=== PATIENT | female | born 1980 | race Caucasian/White ===

== ENCOUNTER 2019-11-08 13:25 | Emergency (ER) | payer OTHER ==
[~2019-11-08] VITALS: Ht 152.4 cm; Wt 56.7 kg
--- NOTE | 2019-11-08 13:40 | NUR ---
[id number] FRM HOME, SOB, SINCE 299. SYMPTOM STARTED YESTERDAY. CHOKING SENSATION S/P EATING FISH YHESTERDAY. PATIENT A/OX4, BREATHING EVEN AND UNLABORED, ON SPO2 100% ON ROOM AIR, PATIETN C/O MIDSTERNAL CHEST PAIN S/O SWALLOWING A FISH BONE. KEPT COMFORTABLE, ATTACHED TO THE RESEARCH EDITOR
[2019-11-08] MEDS ORDERED: ONDANSETRON HCL/PF 4 MG/2 ML VIAL ONE (13:52)
[2019-11-08] MEDS ORDERED: MORPHINE SULFATE INJ 4 MG/ML DISP.SYRIN ONE (13:53)
[2019-11-08] MEDS ORDERED: ONDANSETRON HCL/PF 4 MG/2 ML VIAL IVP ONE (14:00)
[2019-11-08] MEDS ORDERED: MORPHINE SULFATE INJ 2 MG/ML DISP.SYRIN IV ONE (14:00)
[2019-11-08] MEDS ORDERED: IV NS 0.9% 1,000 ML BAG IV ONE (14:00)
[2019-11-08 14:15] LABS: BASOPHILS # (AUTO) 0.2 /CMM (0.0-0.2); BASOPHILS % (AUTO) 2.5 % (0.0-2.0); EOSINOPHILS % (AUTO) 1.9 % (0.0-6.0); HEMATOCRIT 38 % (33-45); HEMOGLOBIN 13.1 g/dL (11.5-14.8); LYMPHOCYTES # (AUTO) 1.5 /CMM (0.8-4.8); LYMPHOCYTES % (AUTO) 21.2 % (20.0-44.0); MEAN CORPUSCULAR HGB CONC 34 g/dl (31.0-36.0); MEAN CORPUSCULAR VOLUME 89 fL (82-100); MONOCYTES # (AUTO) 0.4 /CMM (0.1-1.30); MONOCYTES % (AUTO) 5.2 % (2.0-12.0); NEUTROPHILS % (AUTO) 69.2 % (43.0-81.0); PLATELET COUNT (AUTO) 309 /CMM (150-450); RED BLOOD CELL COUNT(AUTO) 4.27 MIL/uL (4.0-5.2); WHITE BLOOD COUNT (AUTO) 7.3 K/uL (4.3-11.0)
[2019-11-08 14:21] LABS: CALCIUM, SERUM 9.5 mg/dL (8.5-10.1); CREATININE 0.6 mg/dL (0.6-1.3); POTASSIUM 3.8 mmol/L (3.5-5.1)
[2019-11-08 14:26] LABS: ALBUMIN 4.1 g/dL (3.4-5.0); BILIRUBIN,DIRECT 0.1 mg/dL (0.0-0.2); BILIRUBIN,TOTAL 0.3 mg/dL (0.2-1.0); TOTAL PROTEIN, SERUM 7.7 g/dL (6.4-8.2)
[2019-11-08] MEDS ORDERED: LIDOCAINE VISCOUS 2% UD 15 ML UDC ONE (15:28)
[2019-11-08] MEDS ORDERED: MAG HYDROX/AL HYDROX/SIMETH 30 ML UDC ONE (15:28)
[2019-11-08] MEDS ORDERED: MAG HYDROX/AL HYDROX/SIMETH 30 ML UDC PO ONE (15:30)
[2019-11-08] MEDS ORDERED: LIDOCAINE VISCOUS 2% UD 15 ML UDC MM ONE (15:30)
--- NOTE | 2019-11-08 15:37 | NUR ---
patient still with intermittent pain, no distress noted, breathing even and unlabored. IV removed. Catheter intact and site benign. Pressure and 4x4 applied to site. No bleeding noted.Patient discharged to home in stable condition. Written and verbal after care instructions given. Patient verbalizes understanding of instruction. Instructed patient not to drive.
[2019-11-08 15:38] VITALS: BP 112/73
== END 2019-11-08 15:41 | disposition home or self-care (01) ==
LOC: ER 13:25
DX: S27.818A Other injury of esophagus (thoracic part), initial encounter (principal); T18.128A Food in esophagus causing other injury, initial encounter; R11.10 Vomiting, unspecified; F41.9 Anxiety disorder, unspecified; R00.0 Tachycardia, unspecified; Z98.890 Other specified postprocedural states; W45.8XXA Other foreign body or object entering through skin, initial encounter; Y93.89 Activity, other specified; Y92.89 Other specified places as the place of occurrence of the external cause; Y99.8 Other external cause status
CPT/HCPCS: 36415; 70360; 71045; 71250; 80048; 80076; 85025; 96361; 96374; 96375; 99284; J2270; J2405; J7030

== ENCOUNTER 2020-10-04 14:04 | Emergency (ER) | payer OTHER ==
[~2020-10-04] VITALS: Ht 152.4 cm; Wt 62.1 kg
[2020-10-04 14:59] LABS: BASOPHILS % (AUTO) 0.3 % (0.0-2.0); EOSINOPHILS % (AUTO) 2.5 % (0.0-6.0); HEMATOCRIT 36 % (33-45); HEMOGLOBIN 12.1 g/dL (11.5-14.8); LYMPHOCYTES # (AUTO) 1.8 /CMM (0.8-4.8); LYMPHOCYTES % (AUTO) 30.6 % (20.0-44.0); MEAN CORPUSCULAR HGB CONC 34 g/dl (31.0-36.0); MEAN CORPUSCULAR VOLUME 89 fL (82-100); MONOCYTES # (AUTO) 0.4 /CMM (0.1-1.30); MONOCYTES % (AUTO) 7.6 % (2.0-12.0); NEUTROPHILS # (AUTO) 3.5 /CMM (1.8-8.9); PLATELET COUNT (AUTO) 284 /CMM (150-450); RED BLOOD CELL COUNT(AUTO) 4.03 MIL/uL (4.0-5.2); WHITE BLOOD COUNT (AUTO) 5.9 K/uL (4.3-11.0)
[2020-10-04 15:07] LABS: CALCIUM, SERUM 8.8 mg/dL (8.5-10.1); CARBON DIOXIDE 27 mmol/L (21-32); CHLORIDE 105 mmol/L (98-107); CREATININE 0.5 mg/dL (0.6-1.3); GLUCOSE 93 mg/dL (74-106); SODIUM SERUM 141 mmol/L (136-145); UREA NITROGEN, BLOOD 10 mg/dL (7-18)
[2020-10-04 15:25] LABS: ALANINE AMINOTRANSFERASE 26 U/L (12-78); ALBUMIN 3.8 g/dL (3.4-5.0); ALKALINE PHOSPHATASE 39 U/L (46-116); ASPARTATE AMINOTRANSFERASE 16 U/L (15-37); B-TYPE NATRIURETIC PEPTIDE 72 PG/ML (0-125); BILIRUBIN,DIRECT 0.1 mg/dL (0.0-0.2); BILIRUBIN,TOTAL 0.3 mg/dL (0.2-1.0); TOTAL PROTEIN, SERUM 7.2 g/dL (6.4-8.2)
[2020-10-04 15:55] VITALS: BP 137/70
--- NOTE | 2020-10-04 15:56 | NUR ---
Patient discharged to home in stable condition. Written and verbal after care instructions given. Patient verbalizes understanding of instruction.
[2020-10-04] MEDS ORDERED: LIDOCAINE VISCOUS 2% UD 15 ML UDC MM ONE (16:00)
[2020-10-04] MEDS ORDERED: MAG HYDROX/AL HYDROX/SIMETH 30 ML UDC PO ONE (16:00)
--- NOTE | 2020-10-04 16:03 | NUR ---
Pt wanting meds prior to going home GI cocktail given as ordered
[2020-10-04] MEDS ORDERED: LIDOCAINE VISCOUS 2% UD 15 ML UDC ONE (16:05)
[2020-10-04] MEDS ORDERED: MAG HYDROX/AL HYDROX/SIMETH 30 ML UDC ONE (16:05)
== END 2020-10-04 15:56 | disposition home or self-care (01) ==
LOC: ER 14:10
DX: K29.00 Acute gastritis without bleeding (principal); Z98.890 Other specified postprocedural states
CPT/HCPCS: 36415; 71045-TC; 80048-TC; 80076-TC; 83880; 84484-TC; 85025-TC

== ENCOUNTER 2022-01-31 18:48 | Emergency (ER) | payer OTHER ==
[~2022-01-31] VITALS: Ht 152.4 cm; Wt 58.5 kg
--- NOTE | 2022-01-31 19:00 | NUR ---
41yrs femal walking in from home c/o abdominale pain for 4-5 day with N/V diarrhea 8 to 10 time per/day
--- NOTE | 2022-01-31 19:27 | NUR ---
Hand off to Annel RN at bed side
[2022-01-31] MEDS ORDERED: ONDANSETRON HCL/PF 4 MG/2 ML VIAL ONE (19:54)
[2022-01-31] MEDS ORDERED: MORPHINE SULFATE INJ 4 MG/ML DISP.SYRIN ONE (19:55)
[2022-01-31] MEDS ORDERED: ONDANSETRON HCL/PF 4 MG/2 ML VIAL IVP ONE (20:00)
[2022-01-31] MEDS ORDERED: MORPHINE SULFATE INJ 2 MG/ML DISP.SYRIN IV ONE (20:00)
--- NOTE | 2022-01-31 20:07 | NUR ---
BLOOD WORK COLLECTED, SENT TO LABS
[2022-01-31 20:20] LABS: BASOPHILS % (AUTO) 0.5 % (0.0-2.0); EOSINOPHILS % (AUTO) 3.2 % (0.0-6.0); HEMATOCRIT 37 % (33-45); HEMOGLOBIN 12.3 g/dL (11.5-14.8); LYMPHOCYTES # (AUTO) 2.1 K/uL (0.8-4.8); LYMPHOCYTES % (AUTO) 37.2 % (20.0-44.0); MEAN CORPUSCULAR HGB CONC 33 g/dl (31.0-36.0); MEAN CORPUSCULAR VOLUME 89 fL (82-100); MONOCYTES # (AUTO) 0.4 K/uL (0.1-1.30); MONOCYTES % (AUTO) 6.6 % (2.0-12.0); NEUTROPHILS # (AUTO) 2.9 K/uL (1.8-8.9); NEUTROPHILS % (AUTO) 52.5 % (43.0-81.0); PLATELET COUNT (AUTO) 297 K/uL (150-450); RED BLOOD CELL COUNT(AUTO) 4.16 MIL/uL (4.0-5.2); WHITE BLOOD COUNT (AUTO) 5.6 K/uL (4.3-11.0)
[2022-01-31 20:26] LABS: BILIRUBIN,DIRECT 0.1 mg/dL (0.0-0.2); BILIRUBIN,TOTAL 0.2 mg/dL (0.2-1.0); CREATININE 0.6 mg/dL (0.6-1.3); POTASSIUM 4.3 mmol/L (3.5-5.1); TOTAL PROTEIN, SERUM 7.4 g/dL (6.4-8.2)
--- NOTE | 2022-01-31 20:56 | NUR ---
URINE COLLECTED SENT TO LAB
--- NOTE | 2022-01-31 21:42 | NUR ---
PT WENT FOR CT
[2022-01-31] MEDS ORDERED: LIDOCAINE VISCOUS 2% UD 15 ML UDC ONE (22:18)
[2022-01-31] MEDS ORDERED: MAG HYDROX/AL HYDROX/SIMETH 30 ML UDC ONE (22:18)
[2022-01-31] MEDS ORDERED: FAMOTIDINE/PF INJ 20 MG/2 ML VIAL IV ONE ×2 (22:18→22:30)
[2022-01-31] MEDS ORDERED: SUCR1TAB PO (22:27)
[2022-01-31] MEDS ORDERED: LIDOCAINE VISCOUS 2% UD 15 ML UDC MM ONE (22:30)
[2022-01-31] MEDS ORDERED: MAG HYDROX/AL HYDROX/SIMETH 30 ML UDC PO ONE (22:30)
--- NOTE | 2022-01-31 23:10 | NUR ---
PT DISCHARGE TO HOME. D/C INSTRUCTIONS GIVEN. VERBALIZES UNDERSTANDING. IV LINE REMOVED.
[2022-01-31 23:15] VITALS: BP 106/65
== END 2022-01-31 23:20 | disposition home or self-care (01) ==
LOC: ER 18:55
DX: K29.00 Acute gastritis without bleeding (principal)
CPT/HCPCS: 36415; 74176; 80048; 80076; 83690; 84703; 85025; 96374; 96375; 99285; J2270; J2405; J3490

== ENCOUNTER 2023-02-21 23:43 | Emergency (ER) | payer OTHER ==
[~2023-02-21] VITALS: Ht 152.4 cm; Wt 56.7 kg
[~2023-02-21 23:43] MED LIST: SUCR1TAB PO
--- NOTE | 2023-02-22 00:53 | NUR ---
BIBA, FELL FROM STAIRS SUSTAINING RT FOOT INJURY. +SWELLING AND PAIN ON RT FOOT. PLACED COMFORTABLY IN BED, VITALS CHECKED.
[2023-02-22] MEDS ORDERED: HYDROCODONE/APAP 5/325MG TABLET PO ONE (01:00)
[2023-02-22] MEDS ORDERED: KETOROLAC TROMETHAMINE INJ 60 MG/2 ML VIAL IM ONE ×2 (01:00→01:05)
[2023-02-22] MEDS ORDERED: HYDROCODONE/APAP 5/325MG TABLET ONE (01:05)
--- NOTE | 2023-02-22 01:18 | NUR ---
XR AT BEDSIDE
[2023-02-22] MEDS ORDERED: OXYC-128 PO (04:17)
--- NOTE | 2023-02-22 05:03 | NUR ---
Patient discharged to home in stable condition. Written and verbal after care instructions given. Patient verbalizes understanding of instruction.
[2023-02-22 05:27] VITALS: BP 110/81
== END 2023-02-22 05:28 | disposition home or self-care (01) ==
LOC: ER 23:47
DX: S92.251A Displaced fracture of navicular [scaphoid] of right foot, initial encounter for closed fracture (principal); Z98.890 Other specified postprocedural states; Z79.899 Other long term (current) drug therapy; X50.1XXA Overexertion from prolonged static or awkward postures, initial encounter; Y93.89 Activity, other specified; Y92.89 Other specified places as the place of occurrence of the external cause; Y99.8 Other external cause status
CPT/HCPCS: 99284; 96372; 73610; 73630; J1885